=== PATIENT | female | born 2000 | race Caucasian/White ===

== ENCOUNTER 2021-02-10 08:57 | Outpatient (CLI) | payer OTHER | END 2021-02-10 08:58 | disposition home or self-care (01) | LOC: RAD 08:57 | PROVIDERS: ATTEND Surgery | DX: K52.9 Noninfective gastroenteritis and colitis, unspecified (principal); K21.9 Gastro-esophageal reflux disease without esophagitis | CPT/HCPCS: 74246 ==

== ENCOUNTER 2021-05-31 07:45 | Outpatient (CLI) | payer OTHER | END 2021-05-31 07:46 | disposition home or self-care (01) | LOC: NM 07:45 | PROVIDERS: ATTEND Surgery | DX: K21.9 Gastro-esophageal reflux disease without esophagitis (principal) | CPT/HCPCS: 78264; A9541 ==